=== PATIENT | male | born 1995 ===

== ENCOUNTER 2017-03-07 08:48 | Emergency (ER) | payer BC ==
[2017-03-07 09:20] VITALS: BP 124/69
--- NOTE | 2017-03-07 12:39 | UC ---
Raffi Perez Angela, scribed for Rosalia Eddy DO on 03/07/17 at 1040 . Eye Complaint HPI - HPI Summary HPI Summary: This pt is a 21 y/o male presenting to [facility] c/o left eye redness and swelling x2 days. Pt notes his eye is itchy, mildly painful, and has teary eye. Denies trauma to the eye. He thought initially he had a stye so he bought stye ointment. He has used hot compresses twice yesterday and once today with minimal relief. He denies visual impairment, blurry vision, foreign body sensation. Denies fever, chills, diaphoresis, chest pain, SOB, nausea, vomiting , abd pain. Pt wears contacts. PMHx conjunctivitis. - History of Current Complaint Chief Complaint: UCEye Stated Complaint: EYE ISSUE Time Seen by Provider: 03/07/17 10:31 Hx Obtained From: Patient Onset/Duration: Lasting Days, Still Present Timing: Days Severity Currently: Mild Pain Intensity: 2 Pain Scale Used: 0-10 Numeric Aggravating Factor(s): Nothing Alleviating Factor(s): Nothing - Allergies/Home Medications Allergies/Adverse Reactions: Allergies Allergy/AdvReac Type Severity Reaction Status Date / Time No Known Allergies Allergy Verified 03/07/17 09:17 PMH/Surg Hx/FS Hx/Imm Hx - Additional Past Medical History Additional PMH: PMHx: conjunctivitis Previously Healthy: Yes Other Endocrine History: DENIES: diabetes Other Cardiovascular History: DENIES: HTN - Surgical History Surgical History: None - Family History Known Family History: Positive: Diabetes - Social History Alcohol Use: Occasionally Substance Use Type: None Smoking Status (MU): Never Smoked Tobacco Review of Systems Constitutional: Negative Skin: Negative Eyes: Eye Redness - left ENT: Negative Respiratory: Negative Cardiovascular: Negative Gastrointestinal: Negative Genitourinary: Negative Motor: Negative Neurovascular: Negative Musculoskeletal: Negative Neurological: Negative Psychological: Negative All Other Systems Reviewed And Are Negative: Yes Physical Exam Triage Information Reviewed: Yes Appearance: Well-Appearing, No Pain Distress, Well-Nourished Vital Signs: Initial Vital Signs Temp 97.9 F 03/07/17 09:18 Pulse 62 03/07/17 09:18 Resp 18 03/07/17 09:18 BP 124/69 03/07/17 09:18 Pulse Ox 100 03/07/17 09:18 Vital Signs Reviewed: Yes Eyes: Positive: Other: - Left eye: swelling and redness in the upper and lower lid, with inflamed conjunctiva. ENT: Positive: Hearing grossly normal. Negative: Muffled voice, Hoarse voice Neck exam: Normal Neck: Positive: Supple Respiratory: Positive: Lungs clear, Normal breath sounds, No respiratory distress, No accessory muscle use Cardiovascular: Positive: RRR, No Murmur Musculoskeletal Exam: Normal Neurological: Positive: Alert, Muscle Tone Normal Psychological Exam: Normal Psychological: Positive: Age Appropriate Behavior Skin Exam: Normal, Other - warm, dry, normal color Eye Complaint Course/Dx - Course Course Of Treatment: Pt will be discharged with a prescription for Ofloxacin and Keflex. He is advised to return to Urgent Care or the ED for any worsening symptoms in the next 2 days. Medications reviewed. Allergies reviewed. - Differential Dx/Diagnosis Provider Diagnoses: conjunctivits, periorbital cellulitis Discharge - Discharge Plan Condition: Stable Disposition: HOME Prescriptions: Cephalexin CAP* [Keflex CAP*] 500 mg PO BID #20 cap Ofloxacin 0.3%(Ophth)(Nf) [Ocuflox OPTH 0.3%(NF)] 0.3 % OP QID #1 bottle Patient Education Materials: Conjunctivitis (ED), Periorbital Cellulitis in Adults (ED) Referrals: No Primary Care Phys,NOPCP [Primary Care Provider] - Additional Instructions: Start oral antibiotics tomorrow if swelling does not improve by tomorrow with hot compresses. CEPHALOSPORINS: An antibiotic of the cephalosporin class has been prescribed. This type of antibiotic covers a wide variety of infections, including those of the skin, lungs, middle ear, and urinary tract. This antibiotic is somewhat similar to the penicillin family. In rare cases , a person who is allergic to penicillin will also be allergic to this medication. If you have had a severe allergic reaction to penicillin, and have not taken this antibiotic since that time, notify your doctor. Antibiotics which cover many germs ("broad spectrum" antibiotics) are more likely to cause diarrhea or "yeast" infections. Women prone to vaginal yeast problems may suffer an attack after taking this antibiotic. In infants, oral thrush (white spots "stuck" on the cheek) or yeast diaper rash may result. See your doctor if these problems occur. Call the doctor at once if you develop hives, itching, shortness of breath , or lightheadedness. ANYTIME YOU TAKE AN ANTIBIOTIC, IT IS IMPORTANT TO REPLENISH THE BODY'S SUPPLY OF "GOOD BACTERIA." YOU CAN GET GOOD BACTERIA FROM HIGH QUALITY CULTURED FOODS SUCH LOCAL YOGURT, SOUR KRAUT, PRISCILLA GOMEZ, NATURALLY FERMENTED PICKLES AND PROBIOTIC DRINKS. YOU CAN ALSO GET GOOD BACTERIA FROM A PROBIOTIC SUPPLEMENT. Do hot compresses 4 times a day BEFORE using eye drops, . If there is no improvement or symptoms worsen in the next 2 days after using eye drops and antibiotics, return to Urgent Care or the ED. FOLLOW-UP CARE: You should establish with a private physician for follow-up care. If you are unable to get a timely appointment, or if you are worsening, call us or return for re-evaluation. An additional resource available to assist in finding the appropriate physician for your health care needs is the [facility]erral Center. You may contact them by calling [phone]. The documentation as recorded by the Raffi vaughn Angela accurately reflects the service I personally performed and the decisions made by , Rosalia Eddy DO.
== END 2017-03-07 11:00 | disposition home or self-care (01) ==
LOC: UCEAST 08:48
DX: H10.32 Unspecified acute conjunctivitis, left eye (principal); L03.213 Periorbital cellulitis
CPT/HCPCS: 99202; G0463